=== PATIENT | male | born 1990 | race Two or more races ===

== ENCOUNTER 2018-11-22 07:09 | Emergency (ER) | payer MEDICAID ==
[~2018-11-22] VITALS: Ht 167.6 cm; Wt 76.0 kg
[2018-11-22 07:16] VITALS: BP 111/65
--- NOTE | 2018-11-22 07:40 | NUR ---
PT HAS CO OF SINUS PROBLEMS FOR A WEEK. PT DENIES SEASONAL ALLERGIES.
--- NOTE | 2018-11-22 08:01 | NUR ---
Patient given discharge instructions and they have confirmed that they understand the instructions. Patient ambulatory with steady gait.
== END 2018-11-22 08:03 | disposition home or self-care (01) ==
LOC: ED 07:51
DX: J01.00 Acute maxillary sinusitis, unspecified (principal)
CPT/HCPCS: 99283